=== PATIENT | male | born 1990 | race African-American/Black ===

== ENCOUNTER 2022-12-11 08:32 | Emergency (ER) | payer OTHER ==
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
[2022-12-11] MEDS ORDERED: HYDROCODONE/APAP 7.5/325 MG TAB ONE (09:43)
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
[2022-12-11] MEDS ORDERED: ACETAMINOPHEN 500 MG TAB ONE (09:45)
[2022-12-11 09:54] VITALS: BP 133/88; TEMP 98; O2SAT 100
== END 2022-12-11 09:49 | disposition home or self-care (01) ==
LOC: ER 08:32
DX: S02.2XXA Fracture of nasal bones, initial encounter for closed fracture (principal)
CPT/HCPCS: 70160; 99284

== ENCOUNTER 2023-03-15 05:52 | Emergency (ER) | payer OTHER ==
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
--- NOTE | 2023-03-15 06:35 | EDPHYS ---
Physician Documentation [facility] Name: Chris Ashley Age: 32 yrs Sex: Male : 1990 Arrival Date: 03/15/2023 Time: 05:52 Bed 13 Private MD: MAR Physician Mukul Guadarrama HPI: 03/15 06:28 This 32 yrs old Black Male presents to ER via Ambulatory with complaints of Body Fluid [place] Exposure. 06:28 urine in eyes and mouth, 24 hrs. Onset: The symptoms/episode began/occurred 1 day(s) [place] ago. Severity of symptoms: At their worst the symptoms were none. The patient has not experienced similar symptoms in the past. Historical: - Allergies: 06:09 steroids; pf1 - PMHx: 06:09 None; pf1 - PSHx: 06:09 None; pf1 - Immunization history:: Adult Immunizations up to date, Client reports receiving the 2nd dose of the Covid vaccine, Last tetanus immunization: > 10 years ago Flu vaccine is not up to date. - Social history:: Smoking status: Patient denies any tobacco usage or history of. Patient uses alcohol, occasionally. Patient/guardian denies using street drugs. ROS: 06:29 Constitutional: Negative for fever, chills, and weight loss, Eyes: Negative for injury, [place] pain, redness, and discharge, ENT: Negative for injury, pain, and discharge, Neck: Negative for injury, pain, and swelling, Cardiovascular: Negative for chest pain, palpitations, and edema, Respiratory: Negative for shortness of breath, cough, wheezing, and pleuritic chest pain, Abdomen/GI: Negative for abdominal pain, nausea, vomiting, diarrhea, and constipation, Back: Negative for injury and pain, : Negative for injury, bleeding, discharge, and swelling, MS/Extremity: Negative for injury and deformity, Skin: Negative for injury, rash, and discoloration, Neuro: Negative for headache, weakness, numbness, tingling, and seizure, Psych: Negative for depression, anxiety, suicide ideation, homicidal ideation, and hallucinations, Allergy/Immunology: Negative for hives, rash, and allergies, Endocrine: Negative for neck swelling, polydipsia, polyuria, polyphagia, and marked weight changes, Hematologic/Lymphatic: Negative for swollen nodes, abnormal bleeding, and unusual bruising. Exam: 06:29 Constitutional: This is a well developed, well nourished patient who is awake, alert, [place] and in no acute distress. Head/Face: Normocephalic, atraumatic. Eyes: Pupils equal round and reactive to light, extra-ocular motions intact. Lids and lashes normal. Conjunctiva and sclera are non-icteric and not injected. Cornea within normal limits. Periorbital areas with no swelling, redness, or edema. ENT: Nares patent. No nasal discharge, no septal abnormalities noted. Tympanic membranes are normal and external auditory canals are clear. Oropharynx with no redness, swelling, or masses, exudates, or evidence of obstruction, uvula midline. Mucous membranes moist. Neck: Trachea midline, no thyromegaly or masses palpated, and no cervical lymphadenopathy. Supple, full range of motion without nuchal rigidity, or vertebral point tenderness. No Meningismus. Chest/axilla: Normal chest wall appearance and motion. Nontender with no deformity. No lesions are appreciated. Cardiovascular: Regular rate and rhythm with a normal S1 and S2. No gallops, murmurs, or rubs. Normal PMI, no JVD. No pulse deficits. Respiratory: Lungs have equal breath sounds bilaterally, clear to auscultation and percussion. No rales, rhonchi or wheezes noted. No increased work of breathing, no retractions or nasal flaring. Abdomen/GI: Soft, non-tender, with normal bowel sounds. No distension or tympany. No guarding or rebound. No evidence of tenderness throughout. Back: No spinal tenderness. No costovertebral tenderness. Full range of motion. Skin: Warm, dry with normal turgor. Normal color with no rashes, no lesions, and no evidence of cellulitis. MS/ Extremity: Pulses equal, no cyanosis. Neurovascular intact. Full, normal range of motion. Neuro: Awake and alert, GCS 15, oriented to person, place, time, and situation. Cranial nerves II-XII grossly intact. Motor strength 5/5 in all extremities. Sensory grossly intact. Cerebellar exam normal. Normal gait. Psych: Awake, alert, with orientation to person, place and time. Behavior, mood, and affect are within normal limits. Vital Signs: 06:07 BP 127 / 94; Pulse 64; Resp 18; Temp 97.9; Pulse Ox 100% on R/A; Weight 96.16 kg; pf1 Height 6 ft. 1 in. ; Pain 0/10; 07:30 BP 110 / 85; Pulse 58; Resp 17 S; Pulse Ox 99% on R/A; kc6 06:07 Body Mass Index 27.97 (96.16 kg, 185.42 cm) pf1 06:07 Pain Scale: Adult pf1 MDM: 06:19 Patient medically screened. [facility] 06:29 Data reviewed: vital signs, nurses notes. Consideration of Admission/Observation [place] Escalation of care including admission/observation considered. I considered the following discharge prescriptions or medication management in the emergency department Medications were administered in the Emergency Department. See MAR. Care significantly affected by the following chronic conditions: none. 03/15 06:27 Order name: HIV Ag/Ab Combo [place] 03/15 07:12 Order name: Hep Panel eb Administered Medications: No medications were administered Disposition Summary: 03/15/23 06:34 Discharge Ordered Location: Home [place] Problem: new [place] Symptoms: have improved [place] Condition: Stable [place] Diagnosis - Exposure to other specified factors, initial encounter - OCCUPATIONAL EXPOSURE, [place] URINE Followup: [place] - With: Blaze Vo MD - When: 1 - 2 days - Reason: Recheck today's complaints, Continuance of care, Re-evaluation by your physician Discharge Instructions: - Discharge Summary Sheet [place] - Body Fluid Exposure Information [place] - Preventing Body Fluid Exposure [place] Forms: - Medication Reconciliation Form [place] - Thank You Letter [place] - Antibiotic Education [place] - Prescription Opioid Use [place] - Patient Portal Instructions [place] Signatures: Dispatcher [employer] Mukul Michele MD MD cha Finley, Pamala, RN RN pf1
[2023-03-15 08:14] VITALS: TEMP 97.9
[2023-03-15 08:15] VITALS: BP 110/85; O2SAT 99
[2023-03-15 08:35] LABS: Hepatitis B Core IgM Nonreactive (Nonreactive); Hepatitis B surface AG Interp. Nonreactive (Nonreactive); Hepatitis C Virus Ab Nonreactive (Nonreactive)
== END 2023-03-15 08:08 | disposition home or self-care (01) ==
LOC: ER 05:52
DX: Z77.21 Contact with and (suspected) exposure to potentially hazardous body fluids (principal)
CPT/HCPCS: 36415; 80074; 87389; 99283

== ENCOUNTER 2024-11-06 07:51 | Emergency (ER) | payer BC, OTHER ==
[2024-11-06] MEDS ORDERED: IBUPROFEN 200 MG TAB PO ONE (08:28)
--- NOTE | 2024-11-06 08:44 | RAD REPORT ---
EXAMINATION: ONE VIEW CHEST XR CLINICAL INDICATION: Male, 34 years old.,CHEST PAIN TECHNIQUE: Frontal chest projection is submitted. Examination is limited by patient positioning and t echnique. COMPARISON: No prior exam. FINDINGS: The lungs are well inflated and clear. No pneumothorax or sizable effusion. The heart is normal in s ize. Mediastinal contours are unremarkable. IMPRESSION: No acute intrathoracic abnormalities.
--- NOTE | 2024-11-06 08:48 | EDPHYS ---
Physician Documentation [facility] Name: Chris Ashley Age: 34 yrs Sex: Male : 1990 Arrival Date: 11/06/2024 Time: 07:51 Bed 8 Private MD: ED Physician Sunil Tsang HPI: 11/06 08:28 This 34 yrs old Black Male presents to ER via Ambulatory with complaints of Chest Pain. sp3 08:28 34-year-old male with no past medical history presents with right-sided chest pain for sp3 midsternum radiating around to his right axilla and lower ribs. Pain is significantly worse when he moves his right upper extremity. He denies any direct trauma but states he may have "slept wrong". Patient denies any substernal pain, prior cardiac history, difficulty breathing, headache, fever, cough, known sick contacts, abdominal pain, nausea, vomiting, diarrhea, syncope, near syncope, or any other signs or symptoms on ROS at this time.. Historical: - Allergies: 08:03 steroids; iw - Home Meds: 08:03 None [Active]; iw - PMHx: 08:03 None; iw - PSHx: 08:03 None; iw - Immunization history:: Adult Immunizations not up to date. - Infectious Disease History:: Denies. - Social history:: Smoking status: Patient denies any tobacco usage or history of. ROS: 08:31 Constitutional: Negative for fever, chills, and weight loss, Eyes: Negative for injury, sp3 pain, redness, and discharge, ENT: Negative for injury, pain, and discharge, Neck: Negative for injury, pain, and swelling, Cardiovascular: Negative for chest pain, palpitations, and edema, Respiratory: Negative for shortness of breath, cough, wheezing, and pleuritic chest pain, Abdomen/GI: Negative for abdominal pain, nausea, vomiting, diarrhea, and constipation, Back: Negative for injury and pain, Skin: Negative for injury, rash, and discoloration, Psych: Negative for depression, anxiety, suicide ideation, homicidal ideation, and hallucinations, Allergy/Immunology: Negative for hives, rash, and allergies, Endocrine: Negative for neck swelling, polydipsia, polyuria, polyphagia, and marked weight changes, Hematologic/Lymphatic: Negative for swollen nodes, abnormal bleeding, and unusual bruising, 08:31 All other systems are negative, Exam: 08:22 ECG was reviewed by the Attending Physician. EKG demonstrates normal sinus rhythm at 64 sp3 bpm with normal intervals, normal QRS, normal axis, normal ST/T-segment's without evidence of acute ischemia. Vital Signs: 08:02 BP 138 / 96; Pulse 66; Resp 16; Pulse Ox 98% on R/A; Weight 97.07 kg; Height 6 ft. 1 iw in. ; 08:02 Body Mass Index 28.23 (97.07 kg, 185.42 cm) iw MDM: 07:58 Medical Screening Exam initiated sp3 08:31 Data reviewed: vital signs, nurses notes, EKG, radiologic studies. ED course: sp3 34-year-old male with musculoskeletal chest pain. Differential diagnosis includes musculoskeletal pain and to a much lower degree ACS, pleurisy, other vascular pathology which I have clinically all ruled out. EKG is normal. Chest x-ray is pending and if normal we will discharge home on NSAIDs OTC and general precautions.. 11/06 07:59 Order name: XRAY Chest (1 view); Complete Time: 08:46 sp3 11/06 07:59 Order name: EKG; Complete Time: 07:59 sp3 11/06 07:59 Order name: EKG - Nurse/Tech; Complete Time: 08:06 sp3 Administered Medications: 08:43 Drug: Ibuprofen PO 600 mg PO once Route: PO; iw Disposition Summary: 11/06/24 08:47 Discharge Ordered Notes: Location: Home sp3 Condition: Stable sp3 Diagnosis - Chest pain, chest wall pain, musculoskeletal pain sp3 Followup: sp3 - With: Private Physician - When: Upon discharge from the Emergency Department - Reason: Continuance of care Discharge Instructions: - Discharge Summary Sheet sp3 - Chest Wall Pain sp3 Forms: - Work release form sp - Medication Reconciliation Form sp3 - Antibiotic Education sp3 - Prescription Opioid Use sp3 - Patient Portal Instructions sp3 - Leadership Thank You Letter sp3 Prescriptions: - Diclofenac Sodium 75 mg Oral Tablet Sustained Release - take 1 tablet ORAL route 2 times per day; 30 tablet; Refills: 0, Product sp3 Selection Permitted Signatures: Dispatcher [employer] Dia Rolon RN RN iw Tsang, Setul, MD MD sp3
--- NOTE | 2024-11-06 08:48 | ER ---
Nurse's Notes [facility] Name: Chris Ashley Age: 34 yrs Sex: Male : 1990 Arrival Date: 11/06/2024 Time: 07:51 Bed 8 Private MD: Diagnosis: Chest pain, chest wall pain, musculoskeletal pain Presentation: 11/06 08:02 Chief complaint: Patient states: woke up at 0600 with right sided chest pain radiating iw around to his back, denies cough, no injury, no SOB , worse with movement. Coronavirus screen: At this time, the client does not indicate any symptoms associated with coronavirus-19. Ebola Screen: No symptoms or risks identified at this time. Initial Sepsis Screen: Does the patient meet any 2 criteria? No. Patient's initial sepsis screen is negative. Does the patient have a suspected source of infection? No. Patient's initial sepsis screen is negative. Risk Assessment: Do you want to hurt yourself or someone else? Patient reports no desire to harm self or others. Onset of symptoms was November 06, 2024. 08:02 Method Of Arrival: Ambulatory iw 08:02 Acuity: [place] 3 iw Triage Assessment: 08:00 General: Appears in no apparent distress. Behavior is calm, cooperative. Pain: iw Complains of pain in diaphragm and right breast Pain radiates to right subscapular area and right mid back. Cardiovascular: Patient's skin is warm and dry. Historical: - Allergies: 08:03 steroids; iw - Home Meds: 08:03 None [Active]; iw - PMHx: 08:03 None; iw - PSHx: 08:03 None; iw - Immunization history:: Adult Immunizations not up to date. - Infectious Disease History:: Denies. - Social history:: Smoking status: Patient denies any tobacco usage or history of. Screenin:59 [facility] ED Fall Risk Assessment (Adult) History of falling in the last 3 months, iw including since admission No falls in past 3 months (0 pts) Confusion or Disorientation No (0 pts) Intoxicated or Sedated No (0 pts) Impaired Gait No (0 pts) Mobility Assist Device Used No (0 pt) Altered Elimination No (0 pt) Score/Fall Risk Level 0 - 2 = Low Risk Oriented to surroundings, Maintained a safe environment. Abuse screen: Denies threats or abuse. Nutritional screening: No deficits noted. Tuberculosis screening: No symptoms or risk factors identified. Assessment: 08:59 Reassessment: Patient appears in no apparent distress at this time. Patient and/or iw family updated on plan of care and expected duration. Pain level reassessed. Patient is alert, oriented x 3, equal unlabored respirations, skin warm/dry/pink. Patient states feeling better. Patient states symptoms have improved. Vital Signs: 08:02 BP 138 / 96; Pulse 66; Resp 16; Pulse Ox 98% on R/A; Weight 97.07 kg; Height 6 ft. 1 iw in. ; 08:02 Body Mass Index 28.23 (97.07 kg, 185.42 cm) iw ED Course: 07:56 Patient arrived in ED. sj2 07:58 Sunil Tsang MD is Attending Physician. sp3 08:00 Patient has correct armband on for positive identification. Client placed on continuous iw cardiac and pulse oximetry monitoring. NIBP monitoring applied. court monitor on. 08:01 Dia Li RN is Primary Nurse. iw 08:03 Triage completed. iw 08:03 Arm band placed on. iw 08:10 EKG done, by ED staff, reviewed by Sunil Tsang MD. nh2 08:37 XRAY Chest (1 view) In Process Unspecified. EDMS 09:00 No provider procedures requiring assistance completed. Patient did not have IV access iw during this emergency room visit. Patient maintains SpO2 saturation greater than 95% on room air. Administered Medications: 08:43 Drug: Ibuprofen PO 600 mg PO once Route: PO; iw Medication: 09:00 VIS not applicable for this client. iw Outcome: 08:47 Discharge ordered by . sp3 09:00 Discharged to home ambulatory, with friend, iw 09:00 Condition: good 09:00 Discharge instructions given to patient, Instructed on discharge instructions, follow up and referral plans. medication usage, Demonstrated understanding of instructions, follow-up care, medications, Prescriptions given X 1, 09:01 Patient left the ED. iw Signatures: Dispatcher [employer] EDMS Dia Li RN RN iw Sunil Tsang MD MD sp3 Jd Sanchez, Archie Barrios sj2
[2024-11-06 09:16] VITALS: BP 138/96; O2SAT 98
--- NOTE | 2024-11-08 11:24 | EKG ---
Test Date: 2024-11-06 Test Time: 08:04:08 Ui Engineer: DON MEASUREMENT RESULTS: Intervals: Rate: 64 VT: 174 QRSD: 88 QT: 378 QTc: 389 [place]: P: 78 VT: 174 QRS: 81 T: 56 INTERPRETIVE STATEMENTS: Normal sinus rhythm Normal ECG No previous ECG available for comparison Electronically Signed On 11-08-24 11:19:32 CDT by Berry Jarrell
== END 2024-11-06 09:01 | disposition home or self-care (01) ==
LOC: ER 07:51
DX: R07.89 Other chest pain (principal); M79.18 Myalgia, other site
CPT/HCPCS: 71045; 93005; 99284